=== PATIENT | female | born 1985 | race Caucasian/White ===

== ENCOUNTER 2018-06-26 10:56 | Outpatient (CLI) | payer BC, OTHER ==
[~2018-06-26] VITALS: Ht 157.5 cm; Wt 64.5 kg
[2018-06-26 11:09] VITALS: BP 106/62
[2018-06-26 11:32] LABS: MICROSCOPIC AUTO
[2018-06-26 11:33] LABS: CULTURE INDICATED? YES
[2018-06-26 12:14] LABS: CLUE CELLS PRESENT (NONE SEEN); WET PREP WBCS MODERATE (FEW)
== END 2018-06-26 14:26 | disposition home or self-care (01) ==
LOC: LDOP 10:56
PROVIDERS: ATTEND Obstetrics & Gynecology Maternal & Fetal Medicine
DX: O26.893 Other specified pregnancy related conditions, third trimester (principal); R10.9 Unspecified abdominal pain; Z3A.33 33 weeks gestation of pregnancy
CPT/HCPCS: 36415; 59025; 81001; 82731; 87086; 87210; 87808; 99211; G0463

== ENCOUNTER 2018-08-02 21:15 | Inpatient (IN) | payer BC ==
[~2018-08-02] VITALS: Ht 157.5 cm; Wt 67.7 kg
[2018-08-02] MEDS ORDERED: NEWBORN KIT ONE (21:41)
[2018-08-02] MEDS ORDERED: LIDOCAINE 1%, 50ML ONE (21:41)
[2018-08-02] MEDS ORDERED: OXYTOCIN 30U/ 0.9% NaCL 500ML 500 ML IV PRN (21:42)
[2018-08-02] MEDS ORDERED: OXYTOCIN 30U/ 0.9% NaCL 500ML 500 ML ONE (21:42)
[2018-08-02] MEDS ORDERED: MISOPROSTOL 200 MCG TABLET ONE (21:42)
[2018-08-02] MEDS ORDERED: OXYTOCIN 30U/ 0.9% NaCL 500ML 500 ML IV ONE (21:42)
[2018-08-02] MEDS ORDERED: LACTATED RINGERS 1,000 ML IV SCH ×2 (21:42→23:41)
[2018-08-02] MEDS ORDERED: D5%-LACTATED RINGERS 1,000 ML IV SCH (21:42)
[2018-08-02] MEDS ORDERED: PENICILLIN GK 5,000,000 UNITS in SODIUM CHLORIDE 0.9% 100 ML IVPB ONE (22:00)
[2018-08-02] MEDS ORDERED: TERBUTALINE 1 MG/ML, 1ML IVPush PRN (22:00)
[2018-08-02] MEDS ORDERED: FENTANYL PF 100 MCG/2ML IVPush PRN (22:00)
[2018-08-02] MEDS ORDERED: METOCLOPRAMIDE 5 MG/ML, 2ML IVPush PRN (22:00)
[2018-08-02] MEDS ORDERED: FENTANYL PF 100 MCG/2ML IV PRN (22:00)
[2018-08-02] MEDS ORDERED: ONDANSETRON 2MG/ML, 2ML IVPush PRN (22:00)
[2018-08-02] MEDS ORDERED: CALCIUM CARBONATE 500 MG TAB.CHEW PO PRN (22:00)
[2018-08-02] MEDS ORDERED: PENICILLIN GK 2,500,000 UNITS in DEXTROSE 5% 100 ML IVPB SCH (22:00)
[2018-08-02] MEDS: PLEASE ENTER HEIGHT AND WEIGHT MC SCH (22:00)
[2018-08-02] MEDS ORDERED: SODIUM CITRATE/CITRIC ACID 30 ML UDC PO PRN (22:00)
[2018-08-02 22:10] LABS: BASOPHILS # (AUTO) 0.03 x10^3/uL (0-0.1); BASOPHILS % (AUTO) 0 % (0-1); EOSINOPHILS # (AUTO) 0.05 x10^3/uL (0-0.4); EOSINOPHILS % (AUTO) 1 % (1-7); LYMPHOCYTES # (AUTO) 1.63 x10^3/uL (1-3.4); LYMPHOCYTES % (AUTO) 18 % (22-44); MD NO; MEAN CORPUSCULAR HEMOGLOBIN 30.3 pg (27.0-34.8); MEAN CORPUSCULAR HGB CONC 34.3 g/dL (32.4-35.8); MEAN CORPUSCULAR VOLUME 88.5 fL (80-100); MEAN PLATELET VOLUME 8.3 fL (7.4-10.4); MONOCYTES # (AUTO) 0.82 x10^3/uL (0.2-0.8); MONOCYTES % (AUTO) 9 % (2-9); NEUTROPHILS # (AUTO) 6.79 x10^3/uL (1.8-6.8); NEUTROPHILS % (AUTO) 73 % (42-75); PLATELET COUNT 194 x10^3/uL (130-400); RED BLOOD COUNT 4.03 x10^6/uL (3.82-5.3); RED CELL DISTRIBUTION WIDTH 13.9 % (9.6-15.2)
[2018-08-02] MEDS ORDERED: FENTANYL/BUPIV./NS/PF 250 ML EPIDCONT SCH (23:41)
[2018-08-02] MEDS ORDERED: FENTANYL PF 100 MCG/2ML ONE (23:44)
[2018-08-02] MEDS ORDERED: FENTANYL PF 500 MCG, BUPIVACAINE/PF 0.5%, 30ML 62.5 ML in SODIUM CHLORIDE 0.9% 177.5 ML EPIDCONT SCH (23:45)
[2018-08-03] MEDS ORDERED: BUPIVACAINE 0.25% ONE (00:08)
[2018-08-03] MEDS ORDERED: FENTANYL/BUPIV./NS/PF 250 ML EPIDCONT SCH ×2 (00:47)
[2018-08-03] MEDS ORDERED: LACTATED RINGERS 1,000 ML IV SCH ×2 (00:47)
[2018-08-03] MEDS ORDERED: LACTATED RINGERS 1,000 ML IVBOLUS PRN ×3 (01:00)
[2018-08-03] MEDS ORDERED: EPHEDRINE 50 MG/ML, 1ML IVPush PRN (01:00)
[2018-08-03] MEDS ORDERED: NALOXONE 0.4 MG/ML, 1ML IVPush PRN (01:00)
[2018-08-03] MEDS: PENICILLIN GK 2,500,000 UNITS in DEXTROSE 5% 100 ML IVPB SCH ×6 (01:48→22:00)
[2018-08-03] MEDS: PLEASE ENTER HEIGHT AND WEIGHT MC SCH ×3 (06:00→22:00)
[2018-08-03] MEDS ORDERED: IBUPROFEN 600 MG TABLET ONE (13:30)
[2018-08-03] MEDS ORDERED: MISOPROSTOL 200 MCG TABLET PR PRN (13:30)
[2018-08-03] MEDS ORDERED: OXYcodone IR 5MG TABLET PO PRN (13:30)
[2018-08-03] MEDS ORDERED: ONDANSETRON 2MG/ML, 2ML IV PRN (13:30)
[2018-08-03] MEDS ORDERED: ACETAMINOPHEN 325 MG TABLET PO PRN (13:30)
[2018-08-03] MEDS ORDERED: OXYcodone/APAP 5/325MG TABLET PO PRN (13:30)
[2018-08-03] MEDS ORDERED: OXYTOCIN 30U/ 0.9% NaCL 500ML 500 ML ONE (13:31)
[2018-08-03] MEDS: IBUPROFEN 600 MG TABLET PO PRN ×2 (13:40→19:42)
[2018-08-03] MEDS: OXYTOCIN 30U/ 0.9% NaCL 500ML 500 ML IV SCH ×2 (13:43→23:25)
[2018-08-03 16:30] VITALS: BP 105/66
[2018-08-03] MEDS: DOCUSATE 100 MG CAPSULE PO PRN (19:42)
[2018-08-03 19:45] VITALS: BP 97/63
[2018-08-03 21:00] LABS: BASOPHILS # (AUTO) 0.02 x10^3/uL (0-0.1); BASOPHILS % (AUTO) 0 % (0-1); EOSINOPHILS # (AUTO) 0.01 x10^3/uL (0-0.4); EOSINOPHILS % (AUTO) 0 % (1-7); LYMPHOCYTES # (AUTO) 1.29 x10^3/uL (1-3.4); LYMPHOCYTES % (AUTO) 8 % (22-44); MD NO; MEAN CORPUSCULAR HEMOGLOBIN 30.2 pg (27.0-34.8); MEAN CORPUSCULAR HGB CONC 34.3 g/dL (32.4-35.8); MEAN PLATELET VOLUME 7.9 fL (7.4-10.4); MONOCYTES # (AUTO) 1.05 x10^3/uL (0.2-0.8); MONOCYTES % (AUTO) 6 % (2-9); NEUTROPHILS # (AUTO) 14.72 x10^3/uL (1.8-6.8); NEUTROPHILS % (AUTO) 86 % (42-75); PLATELET COUNT 185 x10^3/uL (130-400); RED BLOOD COUNT 4.06 x10^6/uL (3.82-5.3); RED CELL DISTRIBUTION WIDTH 14.1 % (9.6-15.2)
[2018-08-04 00:15] VITALS: BP 87/54
[2018-08-04 04:15] VITALS: BP 94/61
[2018-08-04] MEDS: IBUPROFEN 600 MG TABLET PO PRN (04:40)
[2018-08-04 07:06] VITALS: BP 94/56
[2018-08-04] MEDS: DOCUSATE 100 MG CAPSULE PO PRN (08:46)
[2018-08-04] MEDS ORDERED: PRENATAL VIT/IRON/FA 1 EACH TABLET PO SCH (09:00)
[2018-08-04] MEDS: OXYTOCIN 30U/ 0.9% NaCL 500ML 500 ML IV SCH (09:25)
[2018-08-04] MEDS ORDERED: DIPH,PERTUSS(ACELL),TET VAC/PF NC IM-VACC ONE ×2 (10:43→11:00)
== END 2018-08-04 13:38 | disposition home or self-care (01) | DRG 775 ==
LOC: LDOP 21:15 → LDIP 21:39 → 2NW 08-03 16:27
PROVIDERS: ADMIT Obstetrics & Gynecology Maternal & Fetal Medicine; ATTEND Obstetrics & Gynecology Maternal & Fetal Medicine
PROC: 10D07Z6 Extraction of Products of Conception, Vacuum, Via Natural or Artificial Opening (ICD-10-PCS; principal; 2018-08-03)
PROC: 0KQM0ZZ Repair Perineum Muscle, Open Approach (ICD-10-PCS; 2018-08-03)
PROC: 00HU33Z Insertion of Infusion Device into Spinal Canal, Percutaneous Approach (ICD-10-PCS; 2018-08-03)
PROC: 3E0R3BZ Introduction of Anesthetic Agent into Spinal Canal, Percutaneous Approach (ICD-10-PCS; 2018-08-03)
DX: O76 Abnormality in fetal heart rate and rhythm complicating labor and delivery (principal); O69.81X0 Labor and delivery complicated by cord around neck, without compression, not applicable or unspecified; O75.81 Maternal exhaustion complicating labor and delivery; O70.1 Second degree perineal laceration during delivery; O99.824 Streptococcus B carrier state complicating childbirth; Z37.0 Single live birth; Z3A.38 38 weeks gestation of pregnancy; Z23 Encounter for immunization
CPT/HCPCS: 36415; 85025; 86850; 86900; 89060; 90715; G0378; J2540; J3010; J3490; J2590; J7050; J7120; Q0114

== ENCOUNTER 2020-08-02 17:32 | Inpatient (IN) | payer BC ==
[~2020-08-02] VITALS: Ht 157.5 cm; Wt 61.0 kg
--- NOTE | 2020-08-02 18:21 | NUR ---
PIV PLACED FROM WHICH FULL SET OF LABS INCLUDING T&S DRAWN (WITH LAB VERIFICATION) 1L NS BOLUS STARTED BLEEDING CONTROLLED WITH BULKY GAUZE VAGINAL DRESSING
--- NOTE | 2020-08-02 18:27 | NUR ---
TO ULTRASOUND-DIRECTOR OF PROVIDER RELATIONS WARNED OF HEAVY VAGINAL BLEEDING
[2020-08-02] MEDS ORDERED: SODIUM CHLORIDE 0.9% 1,000ML IVBOLUS ONE ×2 (18:30→20:30)
[2020-08-02] MEDS ORDERED: LORazepam 2 MG/ML, 1ML IVPush ONE (18:30)
[2020-08-02 18:39] LABS: ALBUMIN 4.1 g/dL (3.4-5.0); ANION GAP 8 mmol/L (5-15); CALCIUM 9.4 mg/dL (8.5-10.1); CHLORIDE 108 mmol/L (98-107)
--- NOTE | 2020-08-02 19:00 | NUR ---
BACK FROM ULTRASOUND REPORT TO DAMIAN CROWDER
--- NOTE | 2020-08-02 19:09 | NUR ---
report from norman assumed care of pt at this time
[2020-08-02 19:13] LABS: BASOPHILS # (AUTO) 0.03 x10^3/uL (0-0.1); BASOPHILS % (AUTO) 1 % (0-1); EOSINOPHILS # (AUTO) 0.09 x10^3/uL (0-0.4); EOSINOPHILS % (AUTO) 2 % (1-7); LYMPHOCYTES % (AUTO) 36 % (22-44); MD NO; MEAN CORPUSCULAR HEMOGLOBIN 27.7 pg (27.0-34.8); MEAN CORPUSCULAR HGB CONC 33.2 g/dL (32.4-35.8); MEAN CORPUSCULAR VOLUME 83.2 fL (80-100); MEAN PLATELET VOLUME 7.4 fL (7.4-10.4); MONOCYTES # (AUTO) 0.39 x10^3/uL (0.2-0.8); MONOCYTES % (AUTO) 7 % (2-9); NEUTROPHILS % (AUTO) 56 % (42-75); PLATELET COUNT 279 x10^3/uL (130-400); RED BLOOD COUNT 5.16 x10^6/uL (3.82-5.3); RED CELL DISTRIBUTION WIDTH 13.3 % (9.6-15.2)
--- NOTE | 2020-08-02 19:22 | NUR ---
pt refused ativan at this time
--- NOTE | 2020-08-02 20:01 | NUR ---
lavell pa at bs for exam
[2020-08-02 20:23] LABS: MEAN CORPUSCULAR HEMOGLOBIN 27.1 pg (27.0-34.8); MEAN CORPUSCULAR HGB CONC 32.2 g/dL (32.4-35.8); MEAN CORPUSCULAR VOLUME 84.3 fL (80-100); MEAN PLATELET VOLUME 7.1 fL (7.4-10.4); PLATELET COUNT 255 x10^3/uL (130-400); RED BLOOD COUNT 4.29 x10^6/uL (3.82-5.3); RED CELL DISTRIBUTION WIDTH 13.4 % (9.6-15.2)
[2020-08-02 20:45] LABS: BASOPHILS # (AUTO) 0.01 x10^3/uL (0-0.1); BASOPHILS % (AUTO) 0 % (0-1); EOSINOPHILS # (AUTO) 0.04 x10^3/uL (0-0.4); EOSINOPHILS % (AUTO) 0 % (1-7); LYMPHOCYTES # (AUTO) 1.41 x10^3/uL (1-3.4); LYMPHOCYTES % (AUTO) 9 % (22-44); MD SCAN; MONOCYTES # (AUTO) 0.68 x10^3/uL (0.2-0.8); MONOCYTES % (AUTO) 4 % (2-9); NEUTROPHILS # (AUTO) 14.49 x10^3/uL (1.8-6.8); NEUTROPHILS % (AUTO) 87 % (42-75)
--- NOTE | 2020-08-02 20:46 | NUR ---
pt moved to obgyn hospitalist physician bed and stated she was going to leslyt held up by this rn and pts , put to a sitting position on a sheet on the floor, no loc, pt placed on obgyn hospitalist physician bed and moved to room 17 at this time
--- NOTE | 2020-08-02 20:56 | NUR ---
BEDSIDE REPORT FROM DAMIAN RN, PT CARE TRANSFERRED AT THIS TIME.
--- NOTE | 2020-08-02 21:00 | NUR ---
PT MOVED TO TO ROOM 17 REPORT TO NANCI
--- NOTE | 2020-08-02 21:20 | NUR ---
late entry d/t pt care: Chari SPENCER at bs for eval and pelvic exam. Pt tolerated well. Upon first meeting pt is resting on gurney and pale. appears comfortable, at BS, pt on BP/SPO2/ECG monitoring. NAD. Pt reports lots of vaginal bleeding, Chari placed verbal order for clear liquid diet and NS at 150. pt to be admitted for monitoring. WCTM.
[2020-08-02] MEDS ORDERED: SODIUM CHLORIDE 0.9% 1,000 ML IV SCH (21:30)
[2020-08-02] MEDS: SODIUM CHLORIDE 0.9% 1,000 ML IV SCH (21:34)
[2020-08-02] MEDS ORDERED: SODIUM CHLORIDE 0.9% 1,000 ML IV ONE (21:56)
--- NOTE | 2020-08-02 21:59 | NUR ---
pt given pads, cleaned up, new gown, and new socks as well as water. resting comfortably, denies additional needs at this time. states she packed her own breast pump and will need to pump soon. CARISSA, jael. waiting for admit bed.
[2020-08-02 22:45] VITALS: BP 93/54
[2020-08-03] VITALS (7 sets, daily range): BP systolic 86–101; BP diastolic 49–64
[2020-08-03 01:40] LABS: BASOPHILS # (AUTO) 0.01 x10^3/uL (0-0.1); BASOPHILS % (AUTO) 0 % (0-1); EOSINOPHILS # (AUTO) 0.01 x10^3/uL (0-0.4); EOSINOPHILS % (AUTO) 0 % (1-7); LYMPHOCYTES # (AUTO) 1.22 x10^3/uL (1-3.4); LYMPHOCYTES % (AUTO) 20 % (22-44); MD NO; MEAN CORPUSCULAR HEMOGLOBIN 27.1 pg (27.0-34.8); MEAN CORPUSCULAR HGB CONC 32.4 g/dL (32.4-35.8); MEAN CORPUSCULAR VOLUME 83.6 fL (80-100); MEAN PLATELET VOLUME 6.9 fL (7.4-10.4); MONOCYTES # (AUTO) 0.34 x10^3/uL (0.2-0.8); MONOCYTES % (AUTO) 6 % (2-9); NEUTROPHILS # (AUTO) 4.51 x10^3/uL (1.8-6.8); NEUTROPHILS % (AUTO) 74 % (42-75); PLATELET COUNT 191 x10^3/uL (130-400); RED BLOOD COUNT 2.75 x10^6/uL (3.82-5.3); RED CELL DISTRIBUTION WIDTH 13.4 % (9.6-15.2)
[2020-08-03] MEDS: SODIUM CHLORIDE 0.9% 1,000 ML IV SCH (04:50)
[2020-08-03 14:00] LABS: BASOPHILS # (AUTO) 0.02 x10^3/uL (0-0.1); BASOPHILS % (AUTO) 0 % (0-1); EOSINOPHILS # (AUTO) 0.08 x10^3/uL (0-0.4); EOSINOPHILS % (AUTO) 1 % (1-7); LYMPHOCYTES # (AUTO) 1.86 x10^3/uL (1-3.4); LYMPHOCYTES % (AUTO) 27 % (22-44); MEAN CORPUSCULAR HEMOGLOBIN 28.5 pg (27.0-34.8); MEAN CORPUSCULAR HGB CONC 32.7 g/dL (32.4-35.8); MEAN CORPUSCULAR VOLUME 87.1 fL (80-100); MEAN PLATELET VOLUME 7.1 fL (7.4-10.4); MONOCYTES # (AUTO) 0.57 x10^3/uL (0.2-0.8); MONOCYTES % (AUTO) 8 % (2-9); NEUTROPHILS # (AUTO) 4.39 x10^3/uL (1.8-6.8); NEUTROPHILS % (AUTO) 63 % (42-75); PLATELET COUNT 173 x10^3/uL (130-400); RED BLOOD COUNT 3.06 x10^6/uL (3.82-5.3); RED CELL DISTRIBUTION WIDTH 15.3 % (9.6-15.2)
[2020-08-03 14:04] LABS: MD NO
== END 2020-08-03 16:00 | disposition home or self-care (01) | DRG 761 ==
LOC: ED 19:07 → EDIP 22:18 → 4NW 22:43 → DCLOUNGE 08-03 15:53
PROVIDERS: ADMIT Obstetrics & Gynecology Maternal & Fetal Medicine; ATTEND Obstetrics & Gynecology Maternal & Fetal Medicine
PROC: 30233N1 Transfusion of Nonautologous Red Blood Cells into Peripheral Vein, Percutaneous Approach (ICD-10-PCS; principal; 2020-08-03)
DX: N93.8 Other specified abnormal uterine and vaginal bleeding (principal); N93.0 Postcoital and contact bleeding
CPT/HCPCS: 36415; 36430; 76830; 80048; 82040; 84703; 85025; 86850; 86900; 86901; 86923; 96360; 96361; G0378; J7030; P9016